=== PATIENT | female | born 1990 | race Caucasian/White ===

== ENCOUNTER 2022-10-20 10:12 | Outpatient (OUT) | payer OTHER, SELFPAY ==
[2022-10-20 11:31] LABS: Basophils Percent Auto 0.5 % (0.2-2.0); Eosinophils Absolute Auto 0.1 10^3/uL (0.0-0.7); Hematocrit 42.4 % (36.0-48.0); Immature Granulocytes Abs Auto 0.03 10^3/uL (0.00-0.03); Immature Granulocytes Pct Auto 0.4 % (0.0-0.5); Lymphocytes Absolute Auto 2.1 10^3/uL (1.2-3.8); Lymphocytes Percent Auto 26.8 % (20.5-60.0); Mean Corpuscular Hemoglobin 30.7 pg (26.7-34.0); Mean Platelet Volume 9.9 fL (9.5-13.5); Monocytes Absolute Auto 0.5 10^3/uL (0.3-0.8); Monocytes Percent Auto 5.9 % (1.7-12.0); Neutrophils Absolute Auto 5.2 10^3/uL (1.4-6.5); Neutrophils Percent Auto 65.4 % (43.0-75.0); Platelet Count 219 10^3/uL (150-450); Red Blood Count 4.56 10^6/uL (4.20-5.40); Red Cell Distribution Width 12.9 % (11.0-15.0)
[2022-10-20 11:32] LABS: Anion Gap 13.6; BUN Creatinine Ratio 14.1; Carbon Dioxide 26.2 mmol/L (21.0-32.0); Chloride 105 mmol/L (98-107); Estimated GFR (African America >60 (>=60); Estimated GFR (Non-African Ame >60 (>=60); Glucose 92 mg/dL (74-106); Potassium 3.8 mmol/L (3.5-5.1); Sodium 141 mmol/L (136-145)
== END 2022-10-20 10:13 | disposition home or self-care (01) ==
PROVIDERS: PCP Family Medicine; Visit Provider Family Medicine
DX: R53.82 Chronic fatigue, unspecified (principal)
CPT/HCPCS: 36415; 80048; 84443; 85025

== ENCOUNTER 2023-06-11 13:40 | Emergency (ER) | payer OTHER, SELFPAY ==
[2023-06-11 13:47] VITALS: BP 136/94; PULSE 95; TEMP 36.9; O2SAT 98; BMI 25.6
--- NOTE | 2023-06-11 13:55 | ECG_ITS ---
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
--- NOTE | 2023-06-11 13:55 | CT_ITS ---
The [address] [address] Patient Name: LULÚ PRATT MRN: [id number] date: 1990 Sex: F Assigned Patient Location: ER Current Patient Location: ER Accession/Order Number: [id number] Exam Date: 06/11/2023 14:19 Report Date: 06/11/2023 14:49 At the request of: EMILY DOWNS Procedure: CT head/brain wo con EXAMINATION: CT head/brain wo con HISTORY: Dizzy COMPARISON: No relevant comparison available. TECHNIQUE: Axial CT images were obtained without IV contrast. Dose reduction techniques were achieved by using automated exposure control and/or adjustment of mA and/or kV according to patient size and/or use of iterative reconstruction technique. FINDINGS: BRAIN: No edema, hemorrhage, mass, acute infarction, or inappropriate atrophy. CSF SPACES: No hydrocephalus, subarachnoid hemorrhage, or mass. Appropriate for age. SKULL: No fracture, mass, or other significant visible lesion. SINUSES: Mucosal thickening within visible ethmoid air cells. The remaining visible sinuses are clear. ORBITS: No appreciable abnormality on the limited views. OTHER: Negative CT/CT head/brain wo con IMPRESSION: 1. Normal CT appearance the brain. 2. Chronic versus acute sinusitis involving the ethmoid air cells. Maxillary sinuses are not well included, but the frontal and sphenoid sinuses are clear. Electronically authenticated by: OMER CASTRO Date: 06/11/2023 14:49
--- NOTE | 2023-06-11 13:56 | ED.GENADUL1 ---
HPI HPI - General Adult General Chief complaint: Dizziness Stated complaint: DIZZINESS Time Seen by Provider: 06/11/23 13:47 Source: patient Mode of arrival: walk-in Limitations: no limitations History of Present Illness HPI narrative: Patient is a 33-year-old female who presents to the emergency department for 2-week history of intermittent lightheadedness and dizziness. She describes a sensation of spinning. She has not had any syncopal episodes, falls, visual changes, fevers, cough. She states in the last several days she has felt more congested. She reports pressure in the ears and a sensation of water in the ears that is worse on the right side. She states in the last day she has noticed a swollen area under the right ear on the jawline that she is concerned about. She has had no vomiting, diarrhea, peripheral paresthesias. She is not concerned for . Related Data Home Medications ?Medication ?Instructions ?Recorded ?Confirmed escitalopram oxalate 5 mg tablet 5 mg PO DAILY 06/11/23 06/11/23 Previous Rx's ?Medication ?Instructions ?Recorded cefuroxime axetil 250 mg tablet 250 mg PO BID 10 days #20 tabs 06/11/23 meclizine 25 mg chewable tablet 25 mg PO QID PRN dizziness #12 tabs 06/11/23 (Antivert) methylprednisolone 4 mg tablets in See Rx Instructions .Route 06/11/23 a dose pack (Medrol (Miky)) .COMPLEX #21 ea Allergies Allergy/AdvReac Type Severity Reaction Status Date / Time amoxicillin AdvReac Mild Verified 06/11/23 13:50 codeine AdvReac Mild Verified 06/11/23 13:50 Opioid HPI Opioid Management Most Recent Opioid Data: No Data to Display Review of Systems ROS Constitutional Denies: fever or chills Eyes Denies: change in vision Ears, nose, mouth, and throat Reports: ear pain and nasal congestion; Denies: throat pain Cardiovascular Denies: chest pain Respiratory Denies: shortness of breath or cough Gastrointestinal Denies: nausea, vomiting or diarrhea Musculoskeletal Denies: back pain or neck pain Integumentary/Breast Denies: rash Neurological Reports: dizziness and vertigo; Denies: headache, numbness in extremities or weakness in extremities Endocrine Denies: excessive urination Exam Narrative Exam Narrative: Gen.: Awake, alert, in no distress Head: Normocephalic, atraumatic ENT: Moist mucous membranes; Small preauricular lymph node palpated in the right ear; Bilateral TMs are bulging, right TM is minimally erythematous, left TM is clear Respiratory: No respiratory distress, lungs clear bilaterally Cardio: Regular rate and rhythm Extremities: Moves extremities equally Psych: Normal mood and affect Neuro: No focal neuro deficit Skin: Warm, dry, intact Constitutional Vital Signs, click to edit/add: Last Vital Signs Temp 98.5 F 06/11/23 13:47 Pulse 95 H 06/11/23 13:47 Resp 18 06/11/23 13:47 BP 136/94 H 06/11/23 13:47 Pulse Ox 98 06/11/23 13:47 O2 Del Method Room Air 06/11/23 13:47 Course Vital Signs Vital signs: Vital Signs Temperature 98.5 F 06/11/23 13:47 Pulse Rate 95 H 06/11/23 13:47 Respiratory Rate 18 06/11/23 13:47 Blood Pressure 136/94 H 06/11/23 13:47 Pulse Oximetry 98 06/11/23 13:47 Oxygen Delivery Method Room Air 06/11/23 13:47 Temperature 98.5 F 06/11/23 13:47 Pulse Rate 95 H 06/11/23 13:47 Respiratory Rate 18 06/11/23 13:47 Blood Pressure 136/94 H 06/11/23 13:47 Pulse Oximetry 98 06/11/23 13:47 Oxygen Delivery Method Room Air 06/11/23 13:47 Medical Decision Making MDM Narrative Medical decision making narrative: EKG, CT of the brain, lab studies ordered. Patient medicated with Decadron and Antivert in the ER. CT of the brain shows ethmoid sinusitis. Labs are unremarkable and EKG is within normal limits. Patient discharged on Ceftin, Medrol Dosepak, Antivert for home. Follow-up with PCP and return to the ER if symptoms change or worsen Medical Records Medical records reviewed: Yes I reviewed the patient's medical records Lab Data Lab results reviewed: Yes I reviewed the patient's lab results Labs: Lab Results 06/11/23 Range/Units 14:02 WBC 6.6 (4.0-11.0) 10^3/uL RBC 4.23 (4.20-5.40) 10^6/uL Hgb 13.1 (12.0-16.0) g/dL Hct 39.4 (36.0-48.0) % MCV 93.1 (81.0-99.0) fL MCH 31.0 (26.7-34.0) pg MCHC 33.2 (29.9-35.2) g/dL RDW 12.6 (11.0-15.0) % Plt Count 229 (150-450) 10^3/uL MPV 9.6 (9.5-13.5) fL Neut % (Auto) 53.7 (43.0-75.0) % Lymph % (Auto) 36.2 (20.5-60.0) % Randall % (Auto) 7.5 (1.7-12.0) % Eos % (Auto) 1.8 (0.9-7.0) % Baso % (Auto) 0.6 (0.2-2.0) % Neut # (Auto) 3.5 (1.4-6.5) 10^3/uL Lymph # (Auto) 2.4 (1.2-3.8) 10^3/uL Randall # (Auto) 0.5 (0.3-0.8) 10^3/uL Eos # (Auto) 0.1 (0.0-0.7) 10^3/uL Baso # (Auto) 0.0 (0.0-0.1) 10^3/uL Abs Immat Gran (auto) 0.01 (0.00-0.03) 10^3/uL Imm/Tot Granulo (auto) 0.2 (0.0-0.5) % Sodium 139 (136-145) mmol/L Potassium 4.0 (3.5-5.1) mmol/L Chloride 103 (98-107) mmol/L Carbon Dioxide 26.8 (21.0-32.0) mmol/L Anion Gap 13.2 BUN 9.0 (7.0-18.0) mg/dL Creatinine 0.83 (0.55-1.02) mg/dL Est GFR ( Amer) >60 (>=60) Est GFR (Non-Af Amer) >60 (>=60) BUN/Creatinine Ratio 10.8 Glucose 99 (74-106) mg/dL Calcium 8.6 (8.5-10.1) mg/dL Imaging Data CT scan - head: Attestation: I have reviewed the pertinent imaging results. Radiologist's impression: ITS Impressions Head CT 06/11/23 13:55 IMPRESSION: 1. Normal CT appearance the brain. 2. Chronic versus acute sinusitis involving the ethmoid air cells. Maxillary sinuses are not well included, but the frontal and sphenoid sinuses are clear. Electronically authenticated by: OMER CASTRO Date: 06/11/2023 14:49 ECG Data Attestation: I personally reviewed and interpreted this ECG as follows: (Sinus rhythm at a rate of 81, no acute ST elevation or ectopy. EKG reviewed by attending physician) Discharge Plan Discharge Stand Alone Forms: Portal Instructions Chief Complaint: Dizziness Clinical Impression: Dizziness, Sinusitis Patient Disposition: Home, Self-Care Time of Disposition Decision: 15:24 Condition: Good Prescriptions / Home Meds: New cefuroxime axetil 250 mg tablet 250 mg PO BID 10 Days Qty: 20 0RF methylprednisolone [Medrol (Miky)] 4 mg tablets,dose pack See Rx Instructions .ROUTE .COMPLEX Qty: 21 0RF Rx Instructions: Taper as directed meclizine [Antivert] 25 mg tablet,chewable 25 mg PO QID PRN (Reason: dizziness) Qty: 12 0RF No Action escitalopram oxalate 5 mg tablet 5 mg PO DAILY Print Language: Bahamian Instructions: Sinusitis (ED), Dizziness (ED) Referrals: Melina Orozco MD [Primary Care Provider] - 1 week
[2023-06-11] MEDS: DEXAMETHASONE SOD PHOS 10 MG/ML VIAL PO (14:06)
[2023-06-11] MEDS: MECLIZINE HCL 12.5 MG TABLET 25 MG PO (14:06)
[2023-06-11 14:10] VITALS: PULSE 81
[2023-06-11 14:10] LABS: Basophils Percent Auto 0.6 % (0.2-2.0); Eosinophils Absolute Auto 0.1 10^3/uL (0.0-0.7); Eosinophils Percent Auto 1.8 % (0.9-7.0); Hematocrit 39.4 % (36.0-48.0); Hemoglobin 13.1 g/dL (12.0-16.0); Immature Granulocytes Abs Auto 0.01 10^3/uL (0.00-0.03); Immature Granulocytes Pct Auto 0.2 % (0.0-0.5); Lymphocytes Absolute Auto 2.4 10^3/uL (1.2-3.8); Lymphocytes Percent Auto 36.2 % (20.5-60.0); Mean Corpuscular HGB Conc 33.2 g/dL (29.9-35.2); Mean Corpuscular Volume 93.1 fL (81.0-99.0); Mean Platelet Volume 9.6 fL (9.5-13.5); Monocytes Absolute Auto 0.5 10^3/uL (0.3-0.8); Monocytes Percent Auto 7.5 % (1.7-12.0); Neutrophils Absolute Auto 3.5 10^3/uL (1.4-6.5); Neutrophils Percent Auto 53.7 % (43.0-75.0); Platelet Count 229 10^3/uL (150-450); Red Blood Count 4.23 10^6/uL (4.20-5.40); Red Cell Distribution Width 12.6 % (11.0-15.0); White Blood Count 6.6 10^3/uL (4.0-11.0)
[2023-06-11 14:20] LABS: Anion Gap 13.2; BUN Creatinine Ratio 10.8; Calcium 8.6 mg/dL (8.5-10.1); Carbon Dioxide 26.8 mmol/L (21.0-32.0); Chloride 103 mmol/L (98-107); Estimated GFR (African America >60 (>=60); Estimated GFR (Non-African Ame >60 (>=60); Glucose 99 mg/dL (74-106); Sodium 139 mmol/L (136-145)
== END 2023-06-11 15:32 | disposition home or self-care (01) ==
PROVIDERS: Physician Assistant; Emergency Provider Emergency Medicine Emergency Medical Services; PCP Family Medicine
DX: R42 Dizziness and giddiness (principal); J32.9 Chronic sinusitis, unspecified; Z79.899 Other long term (current) drug therapy
CPT/HCPCS: 36415; 70450; 80048; 85025; 93005; 99285; J1100

== ENCOUNTER 2023-12-14 13:43 | Outpatient (OUT) | payer OTHER, SELFPAY ==
[2023-12-14 14:49] LABS: Free T4 0.67 ng/dL (0.76-1.46)
[2023-12-14 14:56] LABS: Thyroid Stimulating Hormone 1.792 uIU/mL (0.358-3.740)
== END 2023-12-14 13:44 | disposition home or self-care (01) ==
LOC: LAB 13:44
PROVIDERS: PCP Family Medicine; Visit Provider Family Medicine
DX: R63.5 Abnormal weight gain (principal)
CPT/HCPCS: 36415; 84439; 84443